=== PATIENT | female | born 1960 | race Caucasian/White ===

== ENCOUNTER → 2018-03-10 | Outpatient (CLI) | payer OTHER | END | disposition home or self-care (01) | LOC: C.PATHSPEC 17:31 | PROVIDERS: ATTEND Obstetrics & Gynecology | DX: N95.0 Postmenopausal bleeding (principal); N84.0 Polyp of corpus uteri ==

== ENCOUNTER → 2018-03-10 | Outpatient (CLI) | payer OTHER ==
[2018-03-10 16:38] LABS: BASO % 0.2 %; BASO ABS # 0.02 K/uL (0-0.2); EOS % 0.9 %; HEMATOCRIT 44.8 % (37-47); HEMOGLOBIN 14.9 g/dL (12.0-16.0); IG# 0.03 K/uL (0.00-0.02); LYMPH % 38.2 %; LYMPH ABS # 4.14 K/uL (1.2-3.4); MEAN CELL VOLUME 85.5 fL (80-100); MEAN CORPUSCULAR HEMOGLOBIN 28.4 pg (25-34); MEAN CORPUSCULAR HGB CONC 33.3 g/dl (32-36); MEAN PLATELET VOLUME 9.6 fL (7.4-10.4); MONO % 5.5 %; NEUT % 54.9 %; NEUT ABS # 5.95 K/uL (1.4-6.5); PLATELET COUNT 286 K/uL (130-400); RED CELL DISTRIBUTION WIDTH CV 13.9 % (11.5-14.5); WHITE BLOOD COUNT 10.84 K/uL (4.8-10.8)
== END | disposition home or self-care (01) ==
LOC: C.LAB1850 15:01
PROVIDERS: ATTEND Obstetrics & Gynecology
DX: N95.0 Postmenopausal bleeding (principal)

== ENCOUNTER → 2018-03-10 | Outpatient (CLI) | payer OTHER | END | disposition home or self-care (01) | LOC: C.PAPS 10:55 | PROVIDERS: ATTEND Obstetrics & Gynecology | DX: N95.0 Postmenopausal bleeding (principal) ==

== ENCOUNTER 2018-04-17 07:37 | Day surgery (SDC) | payer OTHER ==
[2018-04-13 15:11] VITALS: BMI 41.0
--- NOTE | 2018-04-13 15:25 | HISTORY & PHYSICAL EXAMINATION ---
DATE OF ADMISSION: 04/17/2018 ADMITTING DIAGNOSES: 1. Postmenopausal bleeding. 2. Probable endometrial polyp. ADMISSION HISTORY: The patient is a 57-year-old 3, para 3, postmenopausal female, who is admitted for diagnostic hysteroscopy with D and C for postmenopausal bleeding with probable endometrial polyp. The patient presented [facility] for evaluation of postmenopausal bleeding. The patient felt like that she had gone through the menopause approximately 3 years prior. Evaluation in the office included an endometrial biopsy which showed proliferative endometrium with fragments of endometrial polyp. No evidence of malignancy. Because of this diagnosis, the above procedures have been recommended. PAST MEDICAL HISTORY: OBSTETRICAL: x3. GYNECOLOGICAL: As above. MEDICAL: Morbid obesity. SURGICAL: Tonsillectomy. ALLERGIES: TO OPIOID ANALGESICS. SOCIAL HISTORY: Positive for smoking. FAMILY HISTORY: Noncontributory. REVIEW OF SYSTEMS: As per HPI. PHYSICAL EXAMINATION: GENERAL: Physical examination today shows a pleasant female, in no acute distress. VITAL SIGNS: Blood pressure 124/86, height of 5 feet 5 inches, and weight of 250 pounds. HEENT EXAMINATION: Unremarkable. NECK: Supple. LUNGS: Clear. HEART: With a regular rhythm and rate. ABDOMEN: Obese, nontender with no palpable masses. No rebound, no guarding, no organomegaly. Positive bowel sounds. PELVIC EXAMINATION: Shows multiple sebaceous cysts. The vaginal vault is pink and rugated with no active bleeding. The cervix was multiparous and closed. Bimanual examination, the uterus and adnexa are not palpable secondary to the patient's habitus. RECTAL EXAMINATION: Confirmatory. EXTREMITY EXAMINATION: Shows no deep calf tenderness. NEUROLOGICAL EXAMINATION: Grossly intact. IMPRESSION: This is a 57-year-old G3, P3, postmenopausal female with postmenopausal bleeding and probable endometrial polyp. PLAN: The risks, benefits, and alternatives to the surgery have been discussed. While the benefits will be evaluation of the endometrial lining and removal of any tissue, the risks are bleeding, infection, inadvertent perforation of the uterus, and failure to diagnose and/or treat the problem. The patient understands this, the permit has been signed, and she wishes to proceed.
[2018-04-13 16:21] LABS: BASO % 0.1 %; BASO ABS # 0.01 K/uL (0-0.2); EOS % 0.3 %; EOS ABS # 0.03 K/uL (0-0.5); HEMATOCRIT 44.2 % (37-47); HEMOGLOBIN 14.7 g/dL (12.0-16.0); IG# 0.01 K/uL (0.00-0.02); LYMPH % 29.9 %; LYMPH ABS # 3.01 K/uL (1.2-3.4); MEAN CELL VOLUME 84.7 fL (80-100); MEAN CORPUSCULAR HEMOGLOBIN 28.2 pg (25-34); MEAN CORPUSCULAR HGB CONC 33.3 g/dl (32-36); MEAN PLATELET VOLUME 8.7 fL (7.4-10.4); MONO % 6.2 %; MONO ABS # 0.62 K/uL (0.11-0.59); NEUT % 63.4 %; NEUT ABS # 6.38 K/uL (1.4-6.5); PLATELET COUNT 285 K/uL (130-400); RED CELL DISTRIBUTION WIDTH SD 43.3 fL (36.4-46.3); WHITE BLOOD COUNT 10.06 K/uL (4.8-10.8)
[2018-04-13 16:32] LABS: CALCIUM 8.9 mg/dl (8.5-10.1); CREATININE 0.71 mg/dl (0.60-1.20); POTASSIUM 4.2 mmol/L (3.5-5.1)
[~2018-04-17] VITALS: Ht 165.1 cm; Wt 113.4 kg
[~2018-04-17 07:37] MED LIST: LACTATED RINGER'S 1000ML 1,000 ML IV SCH
[2018-04-17 08:03] VITALS: BP 169/81; PULSE 74; TEMP 36.8; O2SAT 98; Ht 165.1 cm; Wt 113.4 kg
[2018-04-17] MEDS ORDERED: ROCURONIUM BROMIDE 10 MG/ML 5 ML VIAL ONE (08:49)
[2018-04-17] MEDS ORDERED: ATROPINE SULFATE 0.1 MG/ML 5ML SYR IV PRN (09:30)
[2018-04-17] MEDS ORDERED: MEPERIDINE HCL 25 MG/ML CARP IV PRN (09:30)
[2018-04-17] MEDS ORDERED: LABETALOL HCL IV 5 MG/ML 20ML IV PRN (09:30)
[2018-04-17] MEDS ORDERED: FENTANYL CITRATE INJ 50 MCG/1 ML 2 ML VIAL IV PRN (09:30)
[2018-04-17] MEDS ORDERED: PHENYLEPHRINE 100MCG/ML 5ML SYR IV PRN (09:30)
[2018-04-17] MEDS ORDERED: HYDROmorphone INJ 2 MG/ML SYR/VIAL IV PRN (09:30)
[2018-04-17] MEDS ORDERED: ONDANSETRON INJ 2 MG/ML 2 ML VIAL IV PRN ×2 (09:30→11:30)
[2018-04-17] MEDS ORDERED: FLUMAZENIL 0.1 MG/1 ML 10 ML VIAL IV PRN (09:30)
[2018-04-17] MEDS ORDERED: NALOXONE HCL 0.4 MG/1 ML VIAL/CARP IV PRN (09:30)
[2018-04-17] MEDS ORDERED: EpHEDrine SULFATE INJ 50 MG/ML AMP IV PRN (09:30)
[2018-04-17] MEDS ORDERED: LIDOCAINE HCL 2% 2 ML VIAL (20MG/ML) ONE (09:53)
[2018-04-17] MEDS ORDERED: PROPOFOL IV EMULSION 10 MG/ML 20 ML VIAL ONE (09:53)
[2018-04-17] MEDS ORDERED: DEXAMETHASONE SOD INJ 4 MG/ML VIAL ONE (09:53)
[2018-04-17] MEDS ORDERED: ONDANSETRON INJ 2 MG/ML 2 ML VIAL ONE (09:53)
--- NOTE | 2018-04-17 10:12 | History & Physical Bridge Note ---
H&P Re-Evaluation Bridge Note: I have examined the patient, reviewed the History & Physical and in the interval since the performance of the History & Physical I have noted the following changes of clinical significance: No changes noted
[2018-04-17] MEDS ORDERED: KETOROLAC TROMETHAMINE 30 MG/ML VIAL ONE (11:12)
[2018-04-17] MEDS ORDERED: SODIUM CHLORIDE 0.9% 1000ML 1,000 ML IV SCH (11:23)
--- NOTE | 2018-04-17 11:23 | [facility] Post Operative Brief Note ---
Immediate Operative Summary Operative Date April 17, 2018. Pre-Operative Diagnosis 1. Postmenopausal bleeding 2. Possible endometrial polyp Post-Operative Diagnosis 1. Postmenopausal bleeding 2. Endometrial polyp Procedure(s) Performed Hysteroscopy, Dilation and Curettage, Polypectomy Surgeon Dr. Bowman Offc Spec Surgeon(s) none Estimated Blood Loss minimal Findings See Below 2 small fundal polyps, excised with MyoSure, curretage of lining Fluids (cc crystalloids) 600 Specimens A: endometrial curettings B: endometrial polyp Drains None Anesthesia Type General Complication(s) none Disposition Accompanied Pt To Recover: yes Disposition: Recovery Room / PACU
--- NOTE | 2018-04-17 11:26 | Discharge Instructions-SurgCtr ---
Discharge Instructions Date of Service April 17, 2018. Visit Reason for Visit: Endometrial Polyp, Post-Menopausal Bleeding Discharge Discharge Diagnosis / Problem: same Discharge Goals Goal(s): Therapeutic intervention Activity Recommendations Activity Limitations: as noted below Anesthesia . Post Anesthesia Instructions: If you have had General Anesthesia or IV Sedation: * Do not drive today. * Resume driving when surgeon permits. * Do not make important decisions or sign legal documents today. * Call surgeon for: 1. Temperature elevations greater than 101 degrees F. 2. Uncontrollable pain. 3. Excessive bleeding. 4. Persistent nausea and vomiting. 5. Medication intolerance (nausea, vomiting or rash). * For nausea and vomiting use only clear liquids such as: tea, soda, bouillon until nausea subsides, then gradually increase diet as tolerated. * If you have any concerns or questions, call your surgeon's office. If physician is unavailable and it is an emergency, call 911 or go to the nearest emergency room. . Instructions / Follow-Up Instructions / Follow-Up ACTIVITY RECOMMENDATIONS: * Avoid tampons, douching, hot tubs, pools, and intercourse until bleeding has stopped. * May shower as usual. * No strenuous activity for 24-48 hours. After 24-48 hours, you may do anything you feel like doing (driving and sports are okay). SPECIAL CARE INSTRUCTIONS: Special Diet: * Mild nausea may occur in the immediate post-operative period. * Take clear liquids such as tea, cola or bouillon until all nausea has subsided; you may then resume your normal diet. Special Care: * Light bleeding and vaginal spotting can last from a few days to 3-4 weeks. Call your doctor if bleeding becomes heavier than the heaviest part of your period. * Check your temperature twice a day for one week. If it goes above 100.4 degrees Fahrenheit (38.0 Celsius), notify your doctor. * Call your doctor's office for an appointment for 6 weeks after your surgery. FOLLOW-UP VISIT: Call your doctor's office for an appointment for 6 weeks after your surgery. Diet Recommendations Home Diet: resume previous diet Procedures Procedures Performed: Hysteroscopy, Dilation and Curettage, Polypectomy Pending Studies Studies pending at discharge: yes List of pending studies: Pathology Medical Emergencies . Who to Call and When: Medical Emergencies: If at any time you feel your situation is an emergency, please call 911 immediately. . Non-Emergent Contact Non-Emergency issues call your: [employer] Specialist Call Non-Emergent contact if: you have a fever, temperature is above 100.5 . . "Provider Documentation" section prepared by Roel Bowman. .
[2018-04-17] MEDS ORDERED: KETOROLAC TROMETHAMINE 30 MG/ML VIAL IV. PRN (11:30)
[2018-04-17] MEDS ORDERED: IBUPROFEN 600 MG TAB PO PRN (11:30)
--- NOTE | 2018-04-17 11:52 | Anesthesiology Progress Note ---
Anesthesia Post Op Note Date & Time April 17, 2018 at 11:52 Vital Signs Pain Intensity: 0 Vital Signs Past 12 Hours Date Time Temp Pulse Resp B/P (MAP) Pulse Ox O2 Delivery O2 Flow Rate FiO2 04/17/18 11:41 81 16 133/88 94 Oxymask 10 04/17/18 11:31 36.0 118 16 156/76 98 Oxymask 10 04/17/18 08:03 36.8 74 18 169/81 (110) 98 Room Air Notes Mental Status: alert / awake / arousable, participated in evaluation Pt Amnestic to Procedure: Yes Nausea / Vomiting: adequately controlled Pain: adequately controlled Airway Patency, RR, SpO2: stable & adequate BP & HR: stable & adequate Hydration State: stable & adequate Anesthetic Complications: no major complications apparent
[2018-04-17 12:15] VITALS: BP 141/58; PULSE 68; TEMP 36.7; O2SAT 95
[2018-04-17 12:50] VITALS: BP 144/84; PULSE 67; TEMP 37.2; O2SAT 97
--- NOTE | 2018-04-17 14:17 | OPERATIVE REPORT ---
DATE OF OPERATION: 04/17/2018 PREOPERATIVE DIAGNOSES: 1. Postmenopausal bleeding. 2. Endometrial polyp. POSTOPERATIVE DIAGNOSES: 1. Postmenopausal bleeding. 2. Endometrial polyp. PROCEDURES PERFORMED: 1. Diagnostic hysterectomy. 2. Endometrial polypectomy. 3. Dilation and curettage. SURGEON: Roel Bowman M.D. ANESTHESIA: General. FINDINGS: Hysteroscopic examination of the endometrium showed a postmenopausal endometrium with two fundal polyps. Polyps excised. Curettage performed. Repeat hysteroscopic examination showed a denuded endometrium. Fluid deficit for the procedure 390 mL. OPERATIVE NOTE: The patient was taken to the operating room and after general anesthesia, was placed in dorsal lithotomy position and draped and prepped in the usual fashion. Bladder was drained of any residual urine. Single tooth tenaculum was used to grasp the anterior lip of the cervix. The uterus was sounded to a depth of 10 cm. The cervical os was dilated with Hernandez dilators to a Hernandez #25. The MyoSure hysteroscope was inserted into the endometrial cavity with description as above. The resection instrument was inserted and then under direct hysteroscopic guidance, both polyps were excised and sent for pathological evaluation. Scope was removed and a medium curet was introduced into the uterine cavity and all four quadrants were curettaged and sent as a separate pathological specimen. Fluid deficit for the procedure 390 mL Tenaculum removed from the cervix. The patient taken out of dorsal lithotomy to recovery room in satisfactory condition. I attest to the content of the Intraoperative Record and any orders documented therein. Any exception s are noted below.
== END 2018-04-17 13:10 | disposition home or self-care (01) ==
LOC: C.ACU 07:37
PROVIDERS: ATTEND Obstetrics & Gynecology
DX: N95.0 Postmenopausal bleeding (principal); N84.0 Polyp of corpus uteri; F17.200 Nicotine dependence, unspecified, uncomplicated; E66.01 Morbid (severe) obesity due to excess calories; Z68.41 Body mass index [BMI] 40.0-44.9, adult; Z88.5 Allergy status to narcotic agent